=== PATIENT | male | born 1955 | race Caucasian/White ===

== ENCOUNTER 2017-03-12 11:23 | Inpatient (IN) | payer BC ==
[2017-03-12] MEDS ORDERED: METHYLPREDNISOLONE PF 125MG/VIAL IVP ONE (12:14)
[2017-03-12] MEDS ORDERED: IPRATROPIUM/ALBUTEROL (0.5MG/3MG) NEB INH ONE (12:14)
[2017-03-12 12:26] LABS: INFLUENZA A NEGATIVE (NEGATIVE); INFLUENZA B NEGATIVE (NEGATIVE); STREP A SCREEN NEGATIVE (NEGATIVE)
[2017-03-12 12:36] LABS: BASO % 0.3 % (0-6); EOS % 1.9 % (0-6); GRAN % 76.5 % (47-80); HEMATOCRIT 39.5 % (42.0-52.0); HEMOGLOBIN 13.3 gm/dl (14.0-18.0); LYMPH % 7.3 % (16-45); MEAN CELL VOLUME 85.9 fl (81-97); MEAN CORPUSCULAR HEMOGLOBIN 28.9 pg (27-33); MEAN CORPUSCULAR HGB CONC 33.7 g/dl (32-36); MEAN PLATELET VOLUME 9.2 fl (7.4-10.4); PLATELET COUNT 325 K/uL (130-400); RED CELL DISTRIBUTION WIDTH 14.3 % (11.5-14.5); WHITE BLOOD COUNT W/O DIFF 11.2 K/uL (4.2-12.2)
[2017-03-12 12:49] LABS: BLOOD UREA NITROGEN 24 mg/dL (8-23); CREATININE 1.1 mg/dL (0.7-1.2); EST GLOMERULAR FILTRATION RATE > 60 mL/min
[2017-03-12 12:51] LABS: GLUCOSE,RANDOM 121 mg/dL (74-109)
[2017-03-12] MEDS ORDERED: CEFTRIAXONE SODIUM 1 GM in 0.9 % SODIUM CHLORIDE 100ML 100 ML IVPB ONE (13:40)
[2017-03-12] MEDS ORDERED: AZITHROMYCIN 500 MG TABLET PO ONE (13:41)
--- NOTE | 2017-03-12 14:17 | Emergency Department Record ---
History of Present Illness - General Chief Complaint: Cough Stated Complaint: COUGH/DIZZY Time Seen by Provider: 03/12/17 12:00 Source: Patient Mode of Arrival: Ambulatory Limitations: No limitations - History of Present Illness Initial Comments: pt has a cough since last night.he coughs so hard he gets dizzy. he has copd, no kandis o2. his daughter has pertussis. pt had his flu shot. he has felt feverish and has body aches MD Complaint: Cough, Shortness of breath Onset/Timin -: Days(s) Consistency: Getting worse Worsens With: Lying flat Known History Of: COPD Associated Symptoms: Sputum production - Related Data Home Medications Medication Instructions Recorded Confirmed Last Taken Penicillin V Potassium 500 mg PO DAILY 03/12/17 03/12/17 03/12/17 Previous Rx's Medication Instructions Recorded Albuterol Sulfate [Proair Hfa] 1 - 2 inh IH Q4HR PRN #1 inhaler 06/19/15 Aspirin Enteric-Coated [Ecotrin 81 mg PO DAILY tabec 06/19/15 (EC)] Prednisone [Prednisone 10Mg] 10 mg PO ASDIR #30 tab 06/19/15 Promethazine HCl/Codeine 10 ml PO Q4H PRN #180 ml 06/19/15 [Phenergan W/Codeine] Spironolactone [Aldactone] 25 mg PO DAILY tablet 06/19/15 Prednisone [Prednisone 20Mg] 20 mg PO BIDPC #8 tab 07/04/15 Allergies Allergy/AdvReac Type Severity Reaction Status Date / Time No Known Drug Allergies Allergy Verified 07/04/15 20:47 Travel Screening - Travel/Exposure Within Last 30 Days Have you traveled within the last 30 days?: No - Travel/Exposure Within Last Year Have you traveled outside the [place] in the last year?: No - Additonal Travel Details Have you been exposed to anyone with a communicable illness?: No - Travel Symptoms Symptom Screening: None Review of Systems Reviewed: No additional complaints except as noted below Constitutional: Reports: As per HPI, Fever, Weakness. Denies: Chills, Malaise, Night sweats, Weight change Eyes: Reports: As per HPI. Denies: Eye discharge, Eye pain, Photophobia, Vision change ENT: Reports: As per HPI, Congestion, Throat pain. Denies: Dental pain, Ear pain, Epistaxis, Hearing loss Respiratory: Reports: As per HPI, Cough, Wheezes. Denies: Dyspnea, Hemoptysis, Stridor Cardiovascular: Reports: As per HPI. Denies: Arrhythmia, Chest pain, Dyspnea on exertion, Edema, Murmurs, Orthopnea, Palpitations, Paroxysmal nocturnal dyspnea, Rheumatic Fever, Syncope Endocrine: Reports: As per HPI, Fatigue. Denies: Heat or cold intolerance, Polydipsia, Polyuria Gastrointestinal: Reports: As per HPI. Denies: Abdominal pain, Constipation, Diarrhea, Hematemesis, Hematochezia, Melena, Nausea, Vomiting Genitourinary: Reports: As per HPI. Denies: Dysuria, Frequency, Hematuria, Incontinence, Retention, Testicular pain, Testicular mass, Urgency Musculoskeletal: Reports: As per HPI. Denies: Arthralgia, Back pain, Gout, Joint swelling, Myalgia, Neck pain Skin: Reports: As per HPI. Denies: Bruising, Change in color, Change in hair/ nails, Lesions, Pruritus, Rash Neurological: Reports: As per HPI. Denies: Abnormal gait, Confusion, Headache, Numbness, Paresthesias, Seizure, Tingling, Tremors, Vertigo, Weakness Psychiatric: Reports: As per HPI. Denies: Anxiety, Auditory hallucinations, Depression, Homicidal thoughts, Suicidal thoughts, Visual hallucinations Hematological/Lymphatic: Reports: As per HPI. Denies: Anemia, Blood Clots, Easy bleeding, Easy bruising, Swollen glands Past Medical History - SOCIAL HISTORY Smoking Status: Current every day smoker Alcohol Use: Rare Drug Use: None - RESPIRATORY Hx Respiratory Disorders: Yes Hx COPD: Yes Hx Sleep Apnea: Yes Hx of CPAP: No - CARDIOVASCULAR Hx Cardio Disorders: Yes Hx Heart Attack: Yes (2009) Hx Hypertension: Yes Comment:: high cholesterol - NEURO Hx Neuro Disorders: No - GI Hx GI Disorders: Yes Hx Pancreatitis: Yes (2003) - Hx Genitourinary Disorders: No - ENDOCRINE Hx Endocrine Disorders: No - MUSCULOSKELETAL Hx Musculoskeletal Disorders: No - PSYCH Hx Psych Problems: No - HEMATOLOGY/ONCOLOGY Hx Hematology/Oncology Disorders: No Family Medical History Any Significant Family History?: No Hx Cancer: Father *Cancer Comment: Leukemia Hx Heart Disease: Father Hx Resp Disorders: Mother *Resp Comment: COPD Physical Exam - General General Appearance: Alert, Oriented x3, Cooperative, Mild distress - Head Head exam: Normal inspection - Eye Eye exam: Normal appearance, PERRL, EOMI Pupils: Normal accommodation - ENT ENT exam: Normal exam, Mucous membranes moist, Normal external ear exam, Normal orophraynx Ear exam: Normal external inspection. negative: External canal tenderness Nasal Exam: Normal inspection. negative: Discharge, Sinus tenderness Mouth exam: Normal external inspection, Tongue normal Teeth exam: Normal inspection. negative: Dental caries Throat exam: Normal inspection. negative: Tonsillar erythema, Tonsillar exudate - Neck Neck exam: Normal inspection, Full ROM. negative: Tenderness - Respiratory Respiratory exam: Normal lung sounds bilaterally. negative: Respiratory distress - Cardiovascular Cardiovascular Exam: Normal rhythm, Normal heart sounds, Tachycardia - GI/Abdominal GI/Abdominal exam: Soft, Normal bowel sounds. negative: Tenderness - Rectal Rectal exam: Deferred - exam: Deferred - Extremities Extremities exam: Normal inspection, Full ROM, Normal capillary refill. negative: Tenderness - Back Back exam: Reports: Normal inspection, Full ROM. Denies: Muscle spasm, Rash noted, Tenderness - Neurological Neurological exam: Alert, CN II-XII intact, Normal gait, Oriented X3 - Psychiatric Psychiatric exam: Normal affect, Normal mood - Skin Skin exam: Dry, Intact, Normal color, Warm Course Vital Signs 03/12/17 03/12/17 11:40 13:00 Temperature 99.9 F H Pulse Rate 105 H 105 H Respiratory 28 H 21 Rate Blood Pressure 158/63 Pulse Ox 94 L 97 Medical Decision Making - Lab Data Result diagrams: 03/12/17 12:24 03/12/17 12:24 Lab Results 03/12/17 03/12/17 03/12/17 Range/Units 12:05 12:24 12:24 WBC 11.2 (4.2-12.2) K/uL RBC 4.60 (4.40-5.70) M/uL Hgb 13.3 L (14.0-18.0) gm/dl Hct 39.5 L (42.0-52.0) % MCV 85.9 (81-97) fl MCH 28.9 (27-33) pg MCHC 33.7 (32-36) g/dl RDW 14.3 (11.5-14.5) % Plt Count 325 (130-400) K/uL MPV 9.2 (7.4-10.4) fl Gran % 76.5 (47-80) % Lymphocytes % 7.3 L (16-45) % Monocytes % 14.0 H (0-9) % Eosinophils % 1.9 (0-6) % Basophils % 0.3 (0-6) % Sodium 137 (136-145) mmol/L Potassium 4.1 (3.4-4.5) mmol/L Chloride 99 (98-107) mmol/L Carbon Dioxide 25.0 (22-29) mmol/L Anion Gap 13.0 (7-16) BUN 24 H (8-23) mg/dL Creatinine 1.1 (0.7-1.2) mg/dL Estimated GFR > 60 mL/min Random Glucose 121 H (74-109) mg/dL Calcium 8.6 L (8.8-10.2) mg/dL Influenza Type A Ag Negative (NEGATIVE) Influenza Type B Ag Negative (NEGATIVE) Group A Strep Screen Negative (NEGATIVE) Disposition Disposition: Admit Clinical Impression: Pneumonia Qualifiers: Pneumonia type: due to unspecified organism Laterality: bilateral Lung location : lower lobe of lung Qualified Code(s): J18.9 - Pneumonia, unspecified organism Decision to Admit: Admit from ER Decision to Admit Date: 03/12/17 Decision to Admit Time: 14:24 Forms: Patient Portal Access Quality - Quality Measures Quality Measures: N/A - Blood Pressure Screening Does Patient Have Any of the Following: Active Dx of HTN Blood Pressure Classification: Hypertensive Reading Systolic Measurement: 158 Diastolic Measurement: 63 Screening for High Blood Pressure: Patient Exclusion, Hx of HTN [G9744]
[2017-03-12] MEDS ORDERED: OSTELTAMIVIR 75 MG CAP PO ONE (14:22)
[2017-03-12] MEDS ORDERED: METOPROLOL TART 25 MG TABLET PO SCH (15:22)
[2017-03-12] MEDS ORDERED: PROMETHAZINE W/CODEINE 10ML UD PO PRN (15:22)
[2017-03-12] MEDS ORDERED: IPRATROPIUM/ALBUTEROL (0.5MG/3MG) NEB INH PRN (15:22)
[2017-03-12] MEDS ORDERED: ALBUTEROL SULFATE (0.083%) 2.5 MG/3 ML NEB INH PRN (15:22)
[2017-03-12] MEDS ORDERED: NIACIN 1500 MG PO SCH (17:00)
[2017-03-12] MEDS ORDERED: ACETAMINOPHEN 500 MG TABLET PO PRN (18:23)
--- NOTE | 2017-03-12 18:54 | History & Physical ---
History of Present Illness - Date of Service Date of Service for History & Physical: 03/13/17 - History of Present Illness Admitting Diagnosis: pneumonia, bi basilar History of Present Illness: Mr. Galo is a 61 year-old male who presented to the ED on with complaint of productive cough and shortness of breath that began one night prior. He stated that he had been coughing so hard that he felt dizzy. He also complained of fever, chills, and body aches. There was also potential concern regarding pertussis exposure from his daughter- however, she tested negative for pertussis. His history includes: COPD, hypertension, CT in 2009, hyperlipidemia, pancreatitis, depression, current everyday smoker, sleep apnea ( no c-pap), and he did receive a flu vaccine this year. In the ED, his temp was 99.9F, HR 105, BP 158/63, RR 24, and 94% on 2L O2 nc. His CBC and CMP were essentially unremarkable, Hgb 13.3, Hct 39.5, WBC 11.2. Influenza A and B were negative. Rapid strep and culture were both negative. Pertussis was ordered and is pending. Chest x-ray revealed bibasilar air space opacities, worrisome for pneumonitis- likely caused by pneumonia. Azithromycin 500mg IV and Rocephin 1gm IV was administered. Tamilfu 75mg bid started based of pt's presenting signs and symptoms of influenza. Pt. was admitted to inpatient for management of pneumonia, placed in droplet precautions until pertussis result finalized. Duo nebs q6h and albuterol nebs q4h were ordered prn. 03/13/17 1000: Pt is resting in bed. He states that his cough is decreased in frequency and is no longer productive. Pt. still experiencing wheezing. T 98.2 , BP 122/68, HR 68, RR 16, 97% on 2L O2 nc. (pt. does not use home O2). WBC increased this morning to 16.6 with left shift. Per RT request (because pt in droplet isolation pending pertussis results), duo neb changed to MDI- continue combivent q4h prn. Solumedrol 125mg IVP daily changed to prednisone 40mg daily , will plan to continue for 4 days total. Plan to continue IV rocephin 1gm q12h and azithromycin 500mg po qd. Travel Screening - Travel/Exposure Within Last 30 Days Have you traveled within the last 30 days?: No - Travel/Exposure Within Last Year Have you traveled outside the [place] in the last year?: No - Additonal Travel Details Have you been exposed to anyone with a communicable illness?: Yes Exposure Details:: pertussis - Travel Symptoms Symptom Screening: Fever (Subjective), Fever (GT 100.4) - Additional Travel Comment Additional Travel/Exposure Comment: Daughter back from [place] last week, had Pertussis when she returned Review of Systems Constitutional: Reports: As per HPI, Fever, Weakness. Denies: Chills, Malaise, Night sweats, Weight change Eyes: Reports: As per HPI. Denies: Eye discharge, Eye pain, Photophobia, Vision change ENT: Reports: As per HPI, Congestion, Throat pain. Denies: Dental pain, Ear pain, Epistaxis, Hearing loss Respiratory: Reports: As per HPI, Cough, Wheezes. Denies: Dyspnea, Hemoptysis, Stridor Cardiovascular: Reports: As per HPI. Denies: Arrhythmia, Chest pain, Dyspnea on exertion, Edema, Murmurs, Orthopnea, Palpitations, Paroxysmal nocturnal dyspnea, Rheumatic Fever, Syncope Endocrine: Reports: As per HPI, Fatigue. Denies: Heat or cold intolerance, Polydipsia, Polyuria Gastrointestinal: Reports: As per HPI. Denies: Abdominal pain, Constipation, Diarrhea, Hematemesis, Hematochezia, Melena, Nausea, Vomiting Genitourinary: Reports: As per HPI. Denies: Dysuria, Frequency, Hematuria, Incontinence, Retention, Testicular pain, Testicular mass, Urgency Musculoskeletal: Reports: As per HPI. Denies: Arthralgia, Back pain, Gout, Joint swelling, Myalgia, Neck pain Skin: Reports: As per HPI. Denies: Bruising, Change in color, Change in hair/ nails, Lesions, Pruritus, Rash Neurological: Reports: As per HPI. Denies: Abnormal gait, Confusion, Headache, Numbness, Paresthesias, Seizure, Tingling, Tremors, Vertigo, Weakness Psychiatric: Reports: As per HPI, Depression. Denies: Anxiety, Auditory hallucinations, Homicidal thoughts, Suicidal thoughts, Visual hallucinations Hematological/Lymphatic: Reports: As per HPI. Denies: Anemia, Blood Clots, Easy bleeding, Easy bruising, Swollen glands Past Medical History - SOCIAL HISTORY Smoking Status: Current every day smoker Alcohol Use: None Drug Use: None - RESPIRATORY Hx Respiratory Disorders: Yes Hx COPD: Yes Hx Sleep Apnea: Yes Hx of CPAP: No - CARDIOVASCULAR Hx Cardio Disorders: Yes Hx Heart Attack: Yes (2009) Hx Hypertension: Yes Comment:: high cholesterol - NEURO Hx Neuro Disorders: No - GI Hx GI Disorders: Yes Hx Pancreatitis: Yes (2003) - Hx Genitourinary Disorders: No - ENDOCRINE Hx Endocrine Disorders: No Hx Diabetes: No Hx Thyroid Disease: No - MUSCULOSKELETAL Hx Musculoskeletal Disorders: No - PSYCH Hx Psych Problems: No - HEMATOLOGY/ONCOLOGY Hx Hematology/Oncology Disorders: No Family Medical History Any Significant Family History?: Yes Hx Cancer: Father *Cancer Comment: Leukemia Hx Heart Disease: Father Hx Resp Disorders: Mother *Resp Comment: COPD H&P Meds/Allergies - Allergies Allergies: Allergies Allergy/AdvReac Type Severity Reaction Status Date / Time No Known Drug Allergies Allergy Verified 07/04/15 20:47 - Home Medications Home Medications Medication Instructions Recorded Confirmed Last Taken Penicillin V Potassium 500 mg PO DAILY 03/12/17 03/12/17 03/12/17 Amlodipine Besylate/Benazepril 1 each PO DAILY 03/13/17 03/13/17 Unknown [Lotrel 5-40 mg Capsule] Pioglitazone HCl [Pioglitazone HCl] 30 mg PO DAILY 03/13/17 03/13/17 Unknown Previous Rx's Medication Instructions Recorded Albuterol Sulfate [Proair Hfa] 1 - 2 inh IH Q4HR PRN #1 inhaler 06/19/15 Aspirin Enteric-Coated [Ecotrin 81 mg PO DAILY tabec 06/19/15 (EC)] Prednisone [Prednisone 10Mg] 10 mg PO ASDIR #30 tab 06/19/15 Promethazine HCl/Codeine 10 ml PO Q4H PRN #180 ml 06/19/15 [Phenergan W/Codeine] Spironolactone [Aldactone] 25 mg PO DAILY tablet 06/19/15 Prednisone [Prednisone 20Mg] 20 mg PO BIDPC #8 tab 07/04/15 - Active Medications Active Medications: Current Medications Acetaminophen (Tylenol 500mg Tab) 1,000 mg PO Q6H PRN PRN Reason: Fever >101 Albuterol Sulfate () 2.5 mg INH RESP.Q4H PRN PRN Reason: DIFFICULTY IN BREATHING Albuterol/Ipratropium (Duoneb) 3 ml INH RESP.Q6H PRN PRN Reason: Wheezing Aspirin (Ecotrin (Ec)) 81 mg PO DAILY [facility] Atorvastatin Calcium (Lipitor) 80 mg PO DAILY [facility] Azithromycin (Zithromax) 500 mg PO DAILY [facility] Bupropion HCl (Wellbutrin Sr) 150 mg PO BID [facility] Clopidogrel Bisulfate (Plavix) 75 mg PO DAILY [facility] Hydrochlorothiazide (Hctz 25mg) 25 mg PO DAILY [facility] Ceftriaxone Sodium 1 gm/ (Sodium Chloride) 100 mls @ 100 mls/hr IVPB Q24H [facility] Stop: 03/18/17 14:01 Methylprednisolone Sodium Succinate (Solu-Medrol) 125 mg IVP DAILY [facility] Metoprolol Tartrate (Lopressor) 25 mg PO BID [facility] Non-Formulary Medication (Fenofibrate [Lofibra]) 160 mg PO DAILY [facility] Non-Formulary Medication (Niacin [Niaspan]) 1,500 mg PO QPM [facility] Oseltamivir Phosphate (Tamiflu) 75 mg PO BID [facility] Stop: 03/16/17 22:01 Promethazine HCl/Codeine (Phenergan W/Codeine) 10 ml PO Q4H PRN PRN Reason: COUGH Spironolactone (Aldactone) 25 mg PO DAILY [facility] Physical Exam - Vital Signs Vital Signs: Vital Signs - Last 24 Hrs Temp Pulse Pulse Resp BP Pulse Ox 03/12/17 18:00 100.6 F H 96 H 17 106/58 99 03/12/17 17:36 101 H 21 93 L 03/12/17 15:15 99.5 F 97 H 17 118/62 92 L - General General Appearance: Alert, Oriented x3, Cooperative, Mild distress Limitations: No limitations - Head Head exam: Normal inspection - Eye Eye exam: Normal appearance, PERRL, EOMI Pupils: Normal accommodation - ENT ENT exam: Normal exam, Mucous membranes moist, Normal external ear exam, Normal orophraynx Ear exam: Normal external inspection. negative: External canal tenderness Nasal Exam: Normal inspection. negative: Discharge, Sinus tenderness Mouth exam: Normal external inspection, Tongue normal Teeth exam: Normal inspection. negative: Dental caries Throat exam: Normal inspection. negative: Tonsillar erythema, Tonsillar exudate - Neck Neck exam: Normal inspection, Full ROM. negative: Tenderness - Respiratory Respiratory exam: Decreased breath sounds (more decreased in RML and RLL), Wheezes (inspiratory and expiratory). negative: Accessory muscle use, Respiratory distress - Cardiovascular Cardiovascular Exam: Normal rhythm, Normal heart sounds, Tachycardia - GI/Abdominal GI/Abdominal exam: Soft, Normal bowel sounds. negative: Tenderness - Rectal Rectal exam: Deferred - exam: Deferred - Extremities Extremities exam: Normal inspection, Full ROM, Normal capillary refill. negative: Tenderness - Back Back exam: Reports: Normal inspection, Full ROM. Denies: Muscle spasm, Rash noted, Tenderness - Neurological Neurological exam: Alert, CN II-XII intact, Normal gait, Oriented X3 - Psychiatric Psychiatric exam: Normal affect, Normal mood - Skin Skin exam: Dry, Intact, Normal color, Warm Results - Labs Result Diagrams: 03/13/17 06:12 03/13/17 06:12 - Imaging and Cardiology Chest x-ray Status: Report reviewed (bibasilar air space opacities, worrisome for pneumonitis) VTE H&P Assessment - Risk for VTE Risk for VTE: Yes Risk Level: Low Risk Assessment Date: 03/13/17 Risk Assessment Time: 10:49 VTE Orders Placed or Will Be Placed: No VTE Reason for No Prophylaxis: Not Indicated (pt. on plavix) Plan - Inpatient Certification Inpatient Certification: Admit to inpatient care: Based on my medical assessment, after consideration of patient's risk factors (age, co-morbidities and patient presenting symptoms and acuity), I expect that this patient will remain in the hospital greater than or equal to two midnights and that the services needed warrant inpatient care because: Patient Risk Factors: [Age, co-morbidities- COPD, recent possible pertussis exposure] Estimated length of stay: [48-72 hours] The patient may reasonably be expected to be discharged or transferred to a hospital within 96 hours after admission to [facility]. Services needed: [IV antibiotics, respiratory treatments] Post hospital care (if known): [] I certify that my determination is in accordance with my understanding of Medicare requirements for reasonable and necessary inpatient services. 03/12/17 18:51 03/13/17 10:53 - Detailed Diagnosis and Plan (1) Pneumonia Current Visit: Yes Status: Acute Qualifiers: Pneumonia type: due to unspecified organism Laterality: bilateral Lung location: lower lobe of lung Qualified Code(s): J18.9 - Pneumonia, unspecified organism Base Code: J18.9 - PNEUMONIA, UNSPECIFIED ORGANISM Comment: 03/13/17 1050: Pt. presented to ED on 03/12/17 for productive cough and shortness of breath. Chest xray showed bibasilar air space opacities, probable pneumonitis. WBC increased today to 16.6 from 11.2 upon admission. Pt. has remained afebrile since admission. Plan to continue azithromycin 500mg PO daily and changed rocephin 1 gm IV from qd to q12h. Will continue combivent q4h prn wheezing. (2) COPD exacerbation Current Visit: No Status: Acute Base Code: J44.1 - CHRONIC OBSTRUCTIVE PULMONARY DISEASE W (ACUTE) EXACERBATION Comment: 03/13/17 1050: Pt. presented to ED on 03/12 with worsening SOB and productive cough, hx of COPD. C- xray pos for bibasilar pneumonitis. Plan to continue steroids- changed solumedrol 125mg IVP to prednisone 40mg daily. Changed duo neb to combivent q4h prn wheezing (per RT because pt. is in droplet precautions- pending pertussis). Will continue azithromycin 500mg PO daily and rocephin 1g q12h for pneumonitis, likely pneumonia. (3) At risk for deep venous thrombosis Current Visit: Yes Status: Acute Base Code: Z91.89 - OTH PERSONAL RISK FACTORS, NOT ELSEWHERE CLASSIFIED Comment: 03/13/17 1050: Pt. history of CT, hyperlipidemia, decreased ambulation secondary to shortness of breath associated with pneumonia. Pt. takes plavix 75mg daily prophylactically. (4) Full code status Current Visit: Yes Status: Acute Base Code: Z78.9 - OTHER SPECIFIED HEALTH STATUS Comment: 03/13/17 1050: Pt. is full code status
[2017-03-12] MEDS: METOPROLOL TART 25 MG TABLET PO SCH (21:23)
[2017-03-12] MEDS: OSTELTAMIVIR 75 MG CAP PO SCH (21:23)
[2017-03-12] MEDS: BUPROPION HCL 150 MG TAB.SR.12H PO SCH (21:24)
[2017-03-13 06:25] LABS: HEMATOCRIT 38.9 % (42.0-52.0); HEMOGLOBIN 12.9 gm/dl (14.0-18.0); MEAN CELL VOLUME 86.6 fl (81-97); MEAN CORPUSCULAR HEMOGLOBIN 28.7 pg (27-33); MEAN CORPUSCULAR HGB CONC 33.2 g/dl (32-36); MEAN PLATELET VOLUME 9.5 fl (7.4-10.4); PLATELET COUNT 336 K/uL (130-400); RED BLOOD COUNT 4.49 M/uL (4.40-5.70); RED CELL DISTRIBUTION WIDTH 14.5 % (11.5-14.5); WHITE BLOOD COUNT W/O DIFF 16.6 K/uL (4.2-12.2)
[2017-03-13 06:38] LABS: ALB/GLOB RATIO 1.3 (1.1-1.8); ALBUMIN 3.9 g/dL (4.0-5.0); ALKALINE PHOSPHATASE 45 U/L (40-129); ALT/SGPT 19 U/L (<41); AST/SGOT 20 U/L (10.0-50.0); BLOOD UREA NITROGEN 34 mg/dL (8-23); CREATININE 1.2 mg/dL (0.7-1.2); EST GLOMERULAR FILTRATION RATE > 60 mL/min; GLUCOSE,RANDOM 157 mg/dL (74-109); TOTAL PROTEIN 6.9 g/dL (6.6-8.7)
--- NOTE | 2017-03-13 07:13 | RADIOLOGY REPORT ---
EXAM: CHEST, TWO VIEWS HISTORY: COUGH. TECHNIQUE: Frontal and lateral views of the chest were obtained. Comparison: 07/04/15 chest. FINDINGS: The heart size is normal. Patchy bibasilar air space opacities worrisome for pneumonitis. Osteopenia. No pneumothorax. Atheromatous change of the thoracic aorta. IMPRESSION: PATCHY BIBASILAR AIR SPACE OPACITIES, WORRISOME FOR PNEUMONITIS. JOB NUMBER: [id number] MTDD
[2017-03-13] MEDS ORDERED: METHYLPREDNISOLONE PF 125MG/VIAL IVP SCH (10:00)
[2017-03-13] MEDS ORDERED: FENOFIBRATE 160 MG PO SCH (10:00)
[2017-03-13] MEDS: ATORVASTATIN 20 MG TABLET PO SCH (10:09)
[2017-03-13] MEDS: BENAZEPRIL 20 MG TABLET PO SCH (10:09)
[2017-03-13] MEDS: HYDROCHLOROTHIAZIDE 25 MG TABLET PO SCH (10:11)
[2017-03-13] MEDS: PIOGLITAZONE HCL 15 MG TABLET PO SCH (10:11)
[2017-03-13] MEDS: METOPROLOL TART 25 MG TABLET PO SCH ×2 (10:11→21:40)
[2017-03-13] MEDS: AZITHROMYCIN 500 MG TABLET PO SCH (10:11)
[2017-03-13] MEDS: AMLODIPINE BESYLATE 5MG TAB PO SCH (10:11)
[2017-03-13] MEDS: OSTELTAMIVIR 75 MG CAP PO SCH ×2 (10:11→21:41)
[2017-03-13] MEDS: BUPROPION HCL 150 MG TAB.SR.12H PO SCH ×2 (10:11→21:40)
[2017-03-13] MEDS: CLOPIDOGREL 75MG TABLET PO SCH (10:11)
[2017-03-13] MEDS: SPIRONOLACTONE 25 MG TAB PO SCH (10:11)
[2017-03-13] MEDS: ASPIRIN 81 MG TABEC PO SCH (10:11)
[2017-03-13] MEDS: PREDNISONE 20 MG TAB PO SCH (10:12)
[2017-03-13] MEDS ORDERED: IPRATROPIUM/ALBUTEROL 4 GM INH INH PRN (10:19)
[2017-03-13] MEDS: CEFTRIAXONE SODIUM 1 GM in 0.9 % SODIUM CHLORIDE 100ML 100 ML IVPB SCH ×2 (10:34→21:41)
[2017-03-13] MEDS ORDERED: CEFTRIAXONE SODIUM 1 GM in 0.9 % SODIUM CHLORIDE 100ML 100 ML IVPB SCH (14:00)
[2017-03-13] MEDS: IPRATROPIUM/ALBUTEROL 4 GM INH INH SCH ×2 (17:00→22:09)
[2017-03-13] MEDS ORDERED: IBUPROFEN 600 MG TABLET PO PRN (18:05)
[2017-03-13] MEDS ORDERED: IBUPROFEN 400 MG TABLET PO PRN (18:13)
[2017-03-14] MEDS: IPRATROPIUM/ALBUTEROL 4 GM INH INH SCH ×2 (06:19→10:48)
[2017-03-14 06:36] LABS: BASO % 0.2 % (0-6); EOS % 0.4 % (0-6); GRAN % 69.6 % (47-80); HEMATOCRIT 39.1 % (42.0-52.0); LYMPH % 19.8 % (16-45); MEAN CELL VOLUME 87.1 fl (81-97); MEAN CORPUSCULAR HGB CONC 33.2 g/dl (32-36); MEAN PLATELET VOLUME 9.6 fl (7.4-10.4); PLATELET COUNT 325 K/uL (130-400); RED BLOOD COUNT 4.49 M/uL (4.40-5.70); RED CELL DISTRIBUTION WIDTH 14.9 % (11.5-14.5); WHITE BLOOD COUNT W/O DIFF 12.6 K/uL (4.2-12.2)
[2017-03-14 06:37] LABS: MEAN CORPUSCULAR HEMOGLOBIN 28.9 pg (27-33)
[2017-03-14 07:05] LABS: ALB/GLOB RATIO 1.4 (1.1-1.8); ALBUMIN 3.9 g/dL (4.0-5.0); ALKALINE PHOSPHATASE 41 U/L (40-129); ALT/SGPT 21 U/L (<41); AST/SGOT 23 U/L (10.0-50.0); BLOOD UREA NITROGEN 30 mg/dL (8-23); CREATININE 1.1 mg/dL (0.7-1.2); EST GLOMERULAR FILTRATION RATE > 60 mL/min; GLUCOSE,RANDOM 98 mg/dL (74-109); TOTAL PROTEIN 6.6 g/dL (6.6-8.7)
--- NOTE | 2017-03-14 07:39 | Discharge Summary ---
Providers Discharge Summary Date: 03/14/17 Date of admission: 03/12/17 14:52 Expected Date of Discharge: 03/14/17 Attending physician: SILVINA ZELAYA Primary care physician: SERENE NEWMAN M.D. Physical Exam - Vital Signs Vital Signs: Vital Signs - Last 24 Hrs Temp Pulse Pulse Resp BP Pulse Ox 03/14/17 06:19 60 18 93 L 03/14/17 06:00 98.6 F 70 18 122/64 98 03/13/17 22:09 55 L 18 95 03/13/17 21:37 97 F L 63 18 118/63 97 03/13/17 21:00 63 18 03/13/17 18:00 97.0 F L 71 17 117/64 95 03/13/17 17:00 73 19 95 03/13/17 13:55 81 16 117/66 99 03/13/17 10:49 71 17 97 03/13/17 09:00 68 17 03/13/17 07:51 98.2 F 68 16 122/68 97 - General General Appearance: Alert, Oriented x3, Cooperative, No acute distress Limitations: No limitations - Head Head exam: Normal inspection - Eye Eye exam: Normal appearance, PERRL, EOMI Pupils: Normal accommodation - ENT ENT exam: Normal exam, Mucous membranes moist, Normal external ear exam, Normal orophraynx Ear exam: Normal external inspection. negative: External canal tenderness Nasal Exam: Normal inspection. negative: Discharge, Sinus tenderness Mouth exam: Normal external inspection, Tongue normal Teeth exam: Normal inspection. negative: Dental caries Throat exam: Normal inspection. negative: Tonsillar erythema, Tonsillar exudate - Neck Neck exam: Normal inspection, Full ROM. negative: Tenderness - Respiratory Respiratory exam: Wheezes (inspiratory and expiratory). negative: Accessory muscle use, Respiratory distress - Cardiovascular Cardiovascular Exam: Regular rate, Normal rhythm, Normal heart sounds - GI/Abdominal GI/Abdominal exam: Soft, Normal bowel sounds. negative: Tenderness - Rectal Rectal exam: Deferred - exam: Deferred - Extremities Extremities exam: Normal inspection, Full ROM, Normal capillary refill. negative: Tenderness - Back Back exam: Reports: Normal inspection, Full ROM. Denies: Muscle spasm, Rash noted, Tenderness - Neurological Neurological exam: Alert, CN II-XII intact, Normal gait, Oriented X3 - Psychiatric Psychiatric exam: Normal affect, Normal mood - Skin Skin exam: Dry, Intact, Normal color, Warm Hospitalization - Hospitalization Admission Diagnosis: pneumonia, bi basilar - Problem List/Discharge Diagnosis (1) COPD exacerbation Current Visit: No Status: Acute Base Code: J44.1 - CHRONIC OBSTRUCTIVE PULMONARY DISEASE W (ACUTE) EXACERBATION Comment: 03/14/17: Continues to improve. likely 2/2 pneumonitis. Rapid influenza was negative and pertusses pending. CXR bibasilar patchy airspace opacities. Patient reports decreased shortness of breath and cough. He is feeling much improved. Did not qualify for home oxgyen on testing. remains afebrile. WBC trending down. elevation likely 2/ 2 steroid use. -plan to discharge home today. Has follow up wtih Dr. Newman on 03/23 -continue cefdinir 300mg po bid for 7 more days and azithromycin 250mg po daily for 2 more days -continue prednisone 40mg po daily for 2 more days -continue albuterol inhaler q4H prn shortness of breath -will write script for promethazine/codeine. we discussed [employer] depressant effect of codeine and to have him use this sparinly and to avoid any other depressants while taking this medication including etoh. -spent 5 mintues discussing reasons to return to ED including worsening SOB, increased work of breathing. (2) Pertussis exposure Current Visit: Yes Status: Acute Base Code: Z20.818 - CONTACT W AND EXPOSURE TO OTH BACT COMMUNICABLE DISEASES Comment: 03/14/17- patient originally thought he had been exposed to pertussis. His daughter actually tested negative. His test is still pending. Additionally, due to rapid onset of symptoms I would think pertussis is less likely as cause of symptoms. He will continue azithromycin as part of his pneumonia treatment. (3) Full code status Current Visit: Yes Status: Acute Base Code: Z78.9 - OTHER SPECIFIED HEALTH STATUS Comment: 03/14/17: Pt. is full code status (4) At risk for deep venous thrombosis Current Visit: Yes Status: Acute Base Code: Z91.89 - OTH PERSONAL RISK FACTORS, NOT ELSEWHERE CLASSIFIED Comment: 03/14/17 1050: Pt. history of PR, hyperlipidemia, decreased ambulation secondary to shortness of breath associated with pneumonia -continue plavix 75mg daily and encourage ambulation as tolerating - Hospitalization Course Disposition: Home, Self-Care Hospital Course: Mr. Galo is a 61 year-old male who presented to the ED on with complaint of productive cough and shortness of breath that began one night prior. He stated that he had been coughing so hard that he felt dizzy. He also complained of fever, chills, and body aches. There was also potential concern regarding pertussis exposure from his daughter- however, she tested negative for pertussis. His history includes: COPD, hypertension, PR in 2010, hyperlipidemia, pancreatitis, depression, current everyday smoker, sleep apnea ( no c-pap), and he did receive a flu vaccine this year. In the ED, his temp was 99.9F, HR 105, BP 158/63, RR 24, and 94% on 2L O2 nc. His CBC and CMP were essentially unremarkable, Hgb 13.3, Hct 39.5, WBC 11.2. Influenza A and B were negative. Rapid strep and culture were both negative. Pertussis was ordered and is pending. Chest x-ray revealed bibasilar air space opacities, worrisome for pneumonitis- likely caused by pneumonia. Azithromycin 500mg IV and Rocephin 1gm IV was administered. Tamilfu 75mg bid started based of pt's presenting signs and symptoms of influenza. Pt. was admitted to inpatient for management of pneumonia, placed in droplet precautions until pertussis result finalized. Duo nebs q6h and albuterol nebs q4h were ordered prn. 03/13/17 1000: Pt is resting in bed. He states that his cough is decreased in frequency and is no longer productive. Pt. still experiencing wheezing. T 98.2 , BP 122/68, HR 68, RR 16, 97% on 2L O2 nc. (pt. does not use home O2). WBC increased this morning to 16.6 with left shift. Per RT request (because pt in droplet isolation pending pertussis results), duo neb changed to MDI- continue combivent q4h prn. Solumedrol 125mg IVP daily changed to prednisone 40mg daily , will plan to continue for 4 days total. Plan to continue IV rocephin 1gm q12h and azithromycin 500mg po qd. 03/14/17- Patient is doing well today. He says he is feeling much better overall. He is still having some cough but feels like the congestion is loosening up now and he is able to get some stuff up. He denies feeling short of breath. He did very well on the home oxygen qualifier and did not qualify for home oxygen. He is ready to go home and has an appointment with Dr. Newman scheduled. Abnormal Labs: Abnormal Lab Results 03/13/17 03/13/17 03/14/17 Range/Units 06:12 06:12 06:15 WBC 16.6 H 12.6 H (4.2-12.2) K/uL Hgb 12.9 L 13.0 L (14.0-18.0) gm/dl Hct 38.9 L 39.1 L (42.0-52.0) % RDW 14.9 H (11.5-14.5) % Neutrophils % 85.0 H (47-80) % Monocytes % 10.0 H (0-9) % Lymphocytes 10.0 L (16-45) % Potassium 4.8 H (3.4-4.5) mmol/L BUN 34 H (8-23) mg/dL Random Glucose 157 H (74-109) mg/dL Albumin 3.9 L (4.0-5.0) g/dL 03/14/17 Range/Units 06:15 WBC (4.2-12.2) K/uL Hgb (14.0-18.0) gm/dl Hct (42.0-52.0) % RDW (11.5-14.5) % Neutrophils % (47-80) % Monocytes % (0-9) % Lymphocytes (16-45) % Potassium (3.4-4.5) mmol/L BUN 30 H (8-23) mg/dL Random Glucose (74-109) mg/dL Albumin 3.9 L (4.0-5.0) g/dL Condition at Discharge: (2) Stable Discharge Medications - Discharge Medications Prescriptions: Azithromycin 250 mg PO DAILY #2 tablet Cefdinir 300 mg PO BID #15 capsule Oseltamivir Phosphate [Tamiflu] 75 mg PO BID #5 capsule Prednisone [Prednisone 20Mg] 40 mg PO DAILY #4 tab Promethazine HCl/Codeine [Phenergan W/Codeine] 10 ml PO Q4H PRN #180 ml PRN Reason: Cough Home Medications: Ambulatory Orders Atorvastatin Calcium [Lipitor] 80 mg PO DAILY 06/18/15 [Last Taken 03/12/17] Bupropion HCl [Wellbutrin Sr] 150 mg PO BID 06/18/15 [Last Taken 03/12/17] Clopidogrel Bisulfate [Plavix] 75 mg PO DAILY 06/18/15 [Last Taken 03/12/17] Fenofibrate [Lofibra] 160 mg PO DAILY 06/18/15 [Last Taken 03/12/17] Fluticasone/Vilanterol [Breo Ellipta 100-25 Mcg INH] 1 inh IH DAILY 06/18/15 [ Last Taken 03/12/17] Hydrochlorothiazide [Hctz] 25 mg PO DAILY 06/18/15 [Last Taken 03/12/17] Metoprolol Tartrate [Lopressor] 25 mg PO Q12H 06/18/15 [Last Taken 03/12/17] Niacin [Niaspan] 1,500 mg PO QPM 06/18/15 [Last Taken 03/12/17] Umeclidinium [place] [Incruse Ellipta] 1 inh IH DAILY 06/18/15 [Last Taken 03/12] Albuterol Sulfate [Proair Hfa] 1 - 2 inh IH Q4HR PRN #1 inhaler 06/19/15 [Last Taken 03/12/17] Aspirin Enteric-Coated [Ecotrin (EC)] 81 mg PO DAILY tabec 06/19/15 [Last Taken 03/12/17] Spironolactone [Aldactone] 25 mg PO DAILY tablet 06/19/15 [Last Taken 03/12/17] Amlodipine Besylate/Benazepril [Lotrel 5-40 mg Capsule] 1 each PO DAILY [Last Taken Unknown] Pioglitazone HCl 30 mg PO DAILY 03/13/17 [Last Taken Unknown] Azithromycin 250 mg PO DAILY #2 tablet 03/14/17 [Last Taken Unknown] Cefdinir 300 mg PO BID #15 capsule 03/14/17 [Last Taken Unknown] Oseltamivir Phosphate [Tamiflu] 75 mg PO BID #5 capsule 03/14/17 [Last Taken Unknown] Prednisone [Prednisone 20Mg] 40 mg PO DAILY #4 tab 03/14/17 [Last Taken Unknown] Promethazine HCl/Codeine [Phenergan W/Codeine] 10 ml PO Q4H PRN #180 ml [Last Taken Unknown] Discharge Plan - Discharge Instructions Activity at Discharge: Resume Usual Activities As Tolerated Diet at Discharge: Low Fat, Low Cholesterol, Low Salt Diet Additional Instructions: Follow up with Dr. Newman on 03/23/17 at 7:00am. Continue azithromycin 250mg by mouth for 2 more days. Your next dose will be tomorrow Continue cefdinir 300mg by mouth twice daily for 7 more days. Your next dose will be taken tonight. Continue prednisone 40mg by mouth once daily for 2 more days. Your next dose will be tomorrow Continue tamiflu 75mg by mouth twice daily for 2 more days. Your next dose will be due tonight. May use promethazine/codeine cough syrup as needed for persistent cough May use albuterol rescue inhaler every 4 hours as needed for shortness of breath Please call with any questions or concerns Return to ED for any new or worsening symptoms Quality Measures - Quality Measures Quality Measures: Documentation of Current Medications in Medical Record, Screening for High Blood Pressure and F/U Documented - Current Medications Quality Measure: Measure #130: Documentation of Current Medications Documentation of Current Medications: <Current Medications Documented/Reviewed> [G8427] - Blood Pressure Screening Quality Measure: Screening for High Blood Pressure and Follow-Up Documented Does Patient Have Any of the Following: Active Dx of HTN Blood Pressure Classification: Hypertensive Reading Systolic Measurement: 158 Diastolic Measurement: 63 Screening for High Blood Pressure: Patient Exclusion, Hx of HTN [G9744] - Elder Abuse Suspicion Index EASI Reference Information: Mitali PRYOR, Robert C, Francisca D, Sadie Almanza.Development and validation of a tool to assist physicians identification of elder abuse: The Elder Abuse Suspicion Index (EASI ). Journal of Elder Abuse and Neglect, 2008; 20 (3): 276-300.
[2017-03-14] MEDS: CEFTRIAXONE SODIUM 1 GM in 0.9 % SODIUM CHLORIDE 100ML 100 ML IVPB SCH (09:18)
[2017-03-14] MEDS: PREDNISONE 20 MG TAB PO SCH (09:20)
[2017-03-14] MEDS: ATORVASTATIN 20 MG TABLET PO SCH (09:22)
[2017-03-14] MEDS: AZITHROMYCIN 500 MG TABLET PO SCH (09:22)
[2017-03-14] MEDS: AMLODIPINE BESYLATE 5MG TAB PO SCH (09:22)
[2017-03-14] MEDS: CLOPIDOGREL 75MG TABLET PO SCH (09:22)
[2017-03-14] MEDS: BUPROPION HCL 150 MG TAB.SR.12H PO SCH (09:22)
[2017-03-14] MEDS: ASPIRIN 81 MG TABEC PO SCH (09:24)
[2017-03-14] MEDS: BENAZEPRIL 20 MG TABLET PO SCH (09:24)
[2017-03-14] MEDS: PIOGLITAZONE HCL 15 MG TABLET PO SCH (09:29)
[2017-03-14] MEDS: METOPROLOL TART 25 MG TABLET PO SCH (09:30)
[2017-03-14] MEDS: OSTELTAMIVIR 75 MG CAP PO SCH (09:30)
[2017-03-14] MEDS: HYDROCHLOROTHIAZIDE 25 MG TABLET PO SCH (09:30)
[2017-03-14] MEDS: SPIRONOLACTONE 25 MG TAB PO SCH (09:31)
== END 2017-03-14 11:45 | disposition home or self-care (01) | DRG 190 ==
LOC: ER 11:23 → MEDSURG 14:52
PROVIDERS: ADMIT Internal Medicine; ATTEND Internal Medicine
DX: J44.1 Chronic obstructive pulmonary disease with (acute) exacerbation (principal); J18.9 Pneumonia, unspecified organism; J44.0 Chronic obstructive pulmonary disease with (acute) lower respiratory infection; I25.2 Old myocardial infarction; I10 Essential (primary) hypertension; E78.5 Hyperlipidemia, unspecified; F17.210 Nicotine dependence, cigarettes, uncomplicated
CPT/HCPCS: 71046; 80048; 80053; 85025; 85027; 87400; 87880; 94620; 94640; 94760; 94761; 96374; 96375; 99223; 99239; 99285; J2930; J3490; J7512

== ENCOUNTER 2017-06-13 23:07 | Observation (INO) | payer BC ==
[2017-06-13] MEDS ORDERED: IPRATROPIUM/ALBUTEROL (0.5MG/3MG) NEB INH ONE (23:09)
[2017-06-13] MEDS ORDERED: ALBUTEROL SULFATE (0.083%) 2.5 MG/3 ML NEB INH ONE (23:27)
[2017-06-13] MEDS ORDERED: METHYLPREDNISOLONE PF 125MG/VIAL IVP ONE (23:27)
[2017-06-13 23:39] LABS: BASO % 0.6 % (0-6); GRAN % 52.3 % (47-80); HEMATOCRIT 39.4 % (42.0-52.0); HEMOGLOBIN 12.9 gm/dl (14.0-18.0); LYMPH % 33.8 % (16-45); MEAN CELL VOLUME 86.8 fl (81-97); MEAN CORPUSCULAR HEMOGLOBIN 28.4 pg (27-33); MEAN CORPUSCULAR HGB CONC 32.7 g/dl (32-36); MEAN PLATELET VOLUME 9.2 fl (7.4-10.4); MONO % 11.3 % (0-9); PLATELET COUNT 317 K/uL (130-400); RED BLOOD COUNT 4.54 M/uL (4.40-5.70); RED CELL DISTRIBUTION WIDTH 14.8 % (11.5-14.5); WHITE BLOOD COUNT W/O DIFF 10.1 K/uL (4.2-12.2)
--- NOTE | 2017-06-13 23:48 | Emergency Department Record ---
History of Present Illness - General Chief Complaint: Shortness of breath Stated Complaint: TENISHA Time Seen by Provider: 06/13/17 23:17 Source: Patient Mode of Arrival: Ambulatory Limitations: No limitations - History of Present Illness Initial Comments: The patient is here due to a cough and SOB for the last few hours. He has been having mild SOB for a couple of days but it got a lot worse tonight after being exposed to dust in his garage. He denies any CP, fever, back pain, or sweating and does have a hx of COPD with exacerbations similar to this. MD Complaint: Cough, Shortness of breath Onset/Timin -: Hour(s) Known History Of: COPD Treatments Prior to Arrival: Bronchodilator - Related Data Home Oxygen Therapy: No Previous Rx's Medication Instructions Recorded Albuterol Sulfate [Proair Hfa] 1 - 2 inh IH Q4HR PRN #1 inhaler 06/19/15 Aspirin Enteric-Coated [Ecotrin 81 mg PO DAILY tabec 06/19/15 (EC)] Spironolactone [Aldactone] 25 mg PO DAILY tablet 06/19/15 Promethazine HCl/Codeine 10 ml PO Q4H PRN #180 ml 03/14/17 [Phenergan W/Codeine] Allergies Allergy/AdvReac Type Severity Reaction Status Date / Time No Known Drug Allergies Allergy Verified 07/04/15 20:47 Travel Screening - Travel/Exposure Within Last 30 Days Have you traveled within the last 30 days?: No Review of Systems Constitutional: Denies: Chills, Fever, Malaise Eyes: Denies: Eye discharge ENT: Denies: Congestion Respiratory: Reports: Cough, Dyspnea. Denies: Hemoptysis, Wheezes Cardiovascular: Denies: Arrhythmia, Chest pain Endocrine: Denies: Fatigue Gastrointestinal: Denies: Abdominal pain Genitourinary: Denies: Dysuria Musculoskeletal: Denies: Back pain Past Medical History - SOCIAL HISTORY Smoking Status: Current every day smoker Alcohol Use: None Drug Use: None - RESPIRATORY Hx Respiratory Disorders: Yes Hx COPD: Yes Hx Sleep Apnea: Yes Hx of CPAP: No - CARDIOVASCULAR Hx Cardio Disorders: Yes Hx Heart Attack: Yes (2009) Hx Hypertension: Yes Comment:: high cholesterol - NEURO Hx Neuro Disorders: No - GI Hx GI Disorders: Yes Hx Pancreatitis: Yes (2003) - Hx Genitourinary Disorders: No - ENDOCRINE Hx Endocrine Disorders: No Hx Diabetes: No Hx Thyroid Disease: No - MUSCULOSKELETAL Hx Musculoskeletal Disorders: No - PSYCH Hx Psych Problems: No - HEMATOLOGY/ONCOLOGY Hx Hematology/Oncology Disorders: No Family Medical History Any Significant Family History?: Yes Hx Cancer: Father *Cancer Comment: Leukemia Hx Heart Disease: Father Hx Resp Disorders: Mother *Resp Comment: COPD Physical Exam - General General Appearance: Alert, Oriented x3, Cooperative, No acute distress - Head Head exam: Atraumatic, Normocephalic, Normal inspection - Eye Eye exam: Normal appearance, PERRL, EOMI - ENT Throat exam: Normal inspection. negative: Tonsillar erythema, Tonsillar exudate - Neck Neck exam: Normal inspection, Full ROM. negative: Tenderness - Respiratory Respiratory exam: Normal lung sounds bilaterally. negative: Accessory muscle use, Respiratory distress, Rhonchi, Stridor, Wheezes - Cardiovascular Cardiovascular Exam: Regular rate, Normal rhythm, Normal heart sounds - GI/Abdominal GI/Abdominal exam: Soft, Normal bowel sounds. negative: Tenderness - Extremities Extremities exam: Normal inspection, Full ROM, Normal capillary refill. negative: Tenderness - Neurological Neurological exam: Alert, Normal gait. negative: Abnormal gait, Motor sensory deficit Course Vital Signs 06/13/17 06/13/17 06/13/17 23:09 23:12 23:14 Temperature 97.4 F L Pulse Rate 77 Pulse Rate [ 79 Pulse Ox Probe] Respiratory 20 20 Rate Blood Pressure 128/73 [Left Arm] Pulse Ox 95 89 L 06/13/17 23:33 Temperature Pulse Rate 76 Pulse Rate [ Pulse Ox Probe] Respiratory 20 Rate Blood Pressure [Left Arm] Pulse Ox 99 - Reevaluation(s) Reevaluation #1: The patient is doing better but is still mildly dyspneic. His RA biox is 88-90% . Due to that fact I did recommend hospital admission and the patient did agree. I then did discuss the case with Mariposa ([employer]) and she does accept the admission for Dr. Palmer. 06/14/17 00:28 Medical Decision Making - Data Complexity MDM Data: Labs Ordered and/or Reviewed, X-Ray Ordered and/or Reviewed, EKG Ordered and/or Reviewed - Lab Data Result diagrams: 06/13/17 23:32 06/13/17 23:32 Lab Results 06/13/17 06/13/17 Range/Units 23:28 23:32 WBC 10.1 (4.2-12.2) K/uL RBC 4.54 (4.40-5.70) M/uL Hgb 12.9 L (14.0-18.0) gm/dl Hct 39.4 L (42.0-52.0) % MCV 86.8 (81-97) fl MCH 28.4 (27-33) pg MCHC 32.7 (32-36) g/dl RDW 14.8 H (11.5-14.5) % Plt Count 317 (130-400) K/uL MPV 9.2 (7.4-10.4) fl Gran % 52.3 (47-80) % Lymphocytes % 33.8 (16-45) % Monocytes % 11.3 H (0-9) % Eosinophils % 2.0 (0-6) % Basophils % 0.6 (0-6) % Troponin T Cancelled - EKG Data -: EKG Interpreted by Mn EKG: No Acute Changes, Unchanged From Previous - Radiology Data Radiology results: Report reviewed (CXR: Increased interstitial markings lower lobes.) Disposition Disposition: Admit Clinical Impression: COPD exacerbation Disposition: Still a Patient at [facility] Decision to Admit: Admit from ER Decision to Admit Date: 06/14/17 Decision to Admit Time: 00:32 Accepting Physician: Estela Way Discussed w/Accepting Physician: 00:32 Condition: (2) Stable Time of Disposition: 00:32 Quality - Quality Measures Quality Measures: N/A - Blood Pressure Screening View Details: Yes Does Patient Have Any of the Following: Active Dx of HTN Blood Pressure Classification: Pre-Hypertensive BP Reading Systolic Measurement: 134 Diastolic Measurement: 88 Screening for High Blood Pressure: Patient Exclusion, Hx of HTN [G9744]
[2017-06-13 23:54] LABS: BLOOD UREA NITROGEN 32 mg/dL (8-23); CREATININE 1.4 mg/dL (0.7-1.2); EST GLOMERULAR FILTRATION RATE 55 mL/min; GLUCOSE,RANDOM 115 mg/dL (74-109)
[2017-06-13 23:59] LABS: NTpro B-NATRIURETIC PEPTIDE 63.73 pg/mL (<125)
[2017-06-14] MEDS ORDERED: DOXYCYCLINE HYCLATE 100 MG CAPSULE PO ONE (00:11)
[2017-06-14] MEDS ORDERED: ACETAMINOPHEN 325 MG TAB PO PRN (02:08)
[2017-06-14] MEDS ORDERED: PROMETHAZINE W/CODEINE 10ML UD PO PRN (02:08)
[2017-06-14] MEDS ORDERED: METOPROLOL TART 25 MG TABLET PO SCH ×2 (02:08→10:00)
[2017-06-14] MEDS ORDERED: TRELEGY ELLIPTA INH ONE (06:00)
[2017-06-14] MEDS: IPRATROPIUM/ALBUTEROL (0.5MG/3MG) NEB INH SCH ×2 (06:02→10:19)
[2017-06-14 06:43] LABS: BASO % 0.1 % (0-6); EOS % 0.2 % (0-6); HEMATOCRIT 43.1 % (42.0-52.0); HEMOGLOBIN 13.9 gm/dl (14.0-18.0); LYMPH % 12.2 % (16-45); MEAN CELL VOLUME 85.7 fl (81-97); MEAN CORPUSCULAR HEMOGLOBIN 27.6 pg (27-33); MEAN CORPUSCULAR HGB CONC 32.3 g/dl (32-36); MONO % 1.7 % (0-9); PLATELET COUNT 360 K/uL (130-400); RED BLOOD COUNT 5.03 M/uL (4.40-5.70); RED CELL DISTRIBUTION WIDTH 14.7 % (11.5-14.5)
[2017-06-14 07:00] LABS: ALB/GLOB RATIO 1.6 (1.1-1.8); ALBUMIN 4.3 g/dL (4.0-5.0); ALKALINE PHOSPHATASE 46 U/L (40-129); ALT/SGPT 22 U/L (<41); AST/SGOT 22 U/L (10.0-50.0); BLOOD UREA NITROGEN 31 mg/dL (8-23); CREATININE 1.2 mg/dL (0.7-1.2); EST GLOMERULAR FILTRATION RATE > 60 mL/min; GLUCOSE,RANDOM 162 mg/dL (74-109)
--- NOTE | 2017-06-14 09:23 | RADIOLOGY REPORT ---
EXAM: CHEST, TWO VIEWS HISTORY: SHORTNESS OF BREATH, COUGH. TECHNIQUE: PA and lateral views of the chest were obtained. Comparison: Two view chest 03/12/17. FINDINGS: Stable heart size, within normal limits. Slightly prominent basilar interstitial markings similar to before. No acute alveolar infiltrate is seen. No pleural effusion or pneumothorax evident. Slight prominence of the superior mediastinum is also unchanged from before may just represent lipomatosus. IMPRESSION: 1. MILD PROMINENCE OF THE INTERSTITIAL MARKINGS IN THE BASES BEFORE. 2. SLIGHT PROMINENCE OF THE SUPERIOR MEDIASTINUM BEFORE 3. NO ACUTE ALVEOLAR INFILTRATE IS SEEN. JOB NUMBER: [id number] MTDD
--- NOTE | 2017-06-14 09:30 | History & Physical ---
History of Present Illness - Date of Service Date of Service for History & Physical: 06/14/17 - History of Present Illness Admitting Diagnosis: 1. COPD Exacerbation with Hypoxia History of Present Illness: 61 yo male admitted for exacerbation. PMH COPD, seasonal allergies, HTN, nicotine addiction and questionable DM with hx of actos use several months ago but not currently. Pt reports increased dyspnea x 1 week with seasonal changes but was cleaning a dust vacuum and trigger his COPD, alb MDI was not effective to control symptoms. Denies any sick contacts. reports last COPD exacerbation 03/16/17 with PNA, admit for 1 night and d/c home. Pt reports continued smoking of 1ppd since age 17. No current desire to quit. Pt presented to ED for SOB. Denied CP, fever, back pain, or sweating. temp 97.4F, HR 11, RR 20, BP 128/73, 89-95% RA WBC 10.1, Hgb 12.9 (chronic low), Hct 39 (chronic low), plt 317 NA 142, K 3.7, CL 100, CO2 23, BUN 32, creatinine 1.4, GFR 55, glucose 115. Trop < 0.1010, BNP 63.73 EKG negative CXR negative for acute process Pt given alb and duo neb, doxy 100mg PO, solumedrol 125mg IVP amd placed on O2. Per pt and ER provider, SOB improved but pt had O2 requirement to maintain above 90%. Admission for COPD exacerbation PCP JEAN Travel Screening - Travel/Exposure Within Last 30 Days Have you traveled within the last 30 days?: No - Travel/Exposure Within Last Year Have you traveled outside the [place] in the last year?: No - Additonal Travel Details Have you been exposed to anyone with a communicable illness?: No - Travel Symptoms Symptom Screening: None Review of Systems Constitutional: Denies: Chills, Fever, Malaise Eyes: Denies: Eye discharge ENT: Denies: Congestion Respiratory: Reports: Cough, Dyspnea. Denies: Hemoptysis, Wheezes Cardiovascular: Denies: Arrhythmia, Chest pain Endocrine: Denies: Fatigue Gastrointestinal: Denies: Abdominal pain Genitourinary: Denies: Dysuria Musculoskeletal: Denies: Back pain Skin: Reports: As per HPI. Denies: Bruising, Change in color, Change in hair/ nails, Lesions, Pruritus, Rash Neurological: Reports: As per HPI. Denies: Abnormal gait, Confusion, Headache, Numbness, Paresthesias, Seizure, Tingling, Tremors, Vertigo, Weakness Psychiatric: Reports: As per HPI. Denies: Anxiety, Auditory hallucinations, Depression, Homicidal thoughts, Suicidal thoughts, Visual hallucinations Hematological/Lymphatic: Reports: As per HPI. Denies: Anemia, Blood Clots, Easy bleeding, Easy bruising, Swollen glands Past Medical History - SOCIAL HISTORY Smoking Status: Heavy tobacco smoker (>10/day) Alcohol Use: None Drug Use: None - RESPIRATORY Hx Respiratory Disorders: Yes Hx COPD: Yes Hx Sleep Apnea: Yes Hx of CPAP: No - CARDIOVASCULAR Hx Cardio Disorders: Yes Hx Heart Attack: Yes (2009) Hx Hypertension: Yes Comment:: high cholesterol - NEURO Hx Neuro Disorders: No - GI Hx GI Disorders: Yes Hx Pancreatitis: Yes (2003) - Hx Genitourinary Disorders: No - ENDOCRINE Hx Endocrine Disorders: No Hx Diabetes: No Hx Thyroid Disease: No - MUSCULOSKELETAL Hx Musculoskeletal Disorders: No - PSYCH Hx Psych Problems: No - HEMATOLOGY/ONCOLOGY Hx Hematology/Oncology Disorders: No Family Medical History Any Significant Family History?: Yes Hx Cancer: Father *Cancer Comment: Leukemia Hx Heart Disease: Father Hx Resp Disorders: Mother *Resp Comment: COPD H&P Meds/Allergies - Allergies Allergies: Allergies Allergy/AdvReac Type Severity Reaction Status Date / Time No Known Drug Allergies Allergy Verified 07/04/15 20:47 - Home Medications Previous Rx's Medication Instructions Recorded Albuterol Sulfate [Proair Hfa] 1 - 2 inh IH Q4HR PRN #1 inhaler 06/19/15 Aspirin Enteric-Coated [Ecotrin 81 mg PO DAILY tabec 06/19/15 (EC)] Spironolactone [Aldactone] 25 mg PO DAILY tablet 06/19/15 Promethazine HCl/Codeine 10 ml PO Q4H PRN #180 ml 03/14/17 [Phenergan W/Codeine] - Active Medications Active Medications: Current Medications Acetaminophen (Tylenol 325mg) 650 mg PO Q4H PRN PRN Reason: PAIN/TEMP Albuterol/Ipratropium (Duoneb) 3 ml INH RESP.Q4H.[facility] Last Admin: 06/14/17 06:02 Dose: 3 ml Amlodipine Besylate (Norvasc) 5 mg PO DAILY [facility] Last Admin: 06/14/17 09:13 Dose: 5 mg Aspirin (Ecotrin (Ec)) 81 mg PO DAILY [facility] Last Admin: 06/14/17 09:13 Dose: 81 mg Atorvastatin Calcium (Lipitor) 80 mg PO DAILY [facility] Last Admin: 06/14/17 09:14 Dose: 80 mg Benazepril HCl (Lotensin) 40 mg PO DAILY [facility] Last Admin: 06/14/17 09:14 Dose: 40 mg Bupropion HCl (Wellbutrin Sr) 150 mg PO BID [facility] Last Admin: 06/14/17 09:13 Dose: 150 mg Clopidogrel Bisulfate (Plavix) 75 mg PO DAILY [facility] Last Admin: 06/14/17 09:14 Dose: 75 mg Doxycycline Hyclate (Vibramycin) 100 mg PO BID [facility] Last Admin: 06/14/17 09:13 Dose: 100 mg Hydrochlorothiazide (Hctz 25mg) 25 mg PO DAILY [facility] Last Admin: 06/14/17 09:13 Dose: 25 mg Methylprednisolone Sodium Succinate (Solu-Medrol) 60 mg IVP DAILY [facility] Last Admin: 06/14/17 09:15 Dose: 60 mg Metoprolol Tartrate (Lopressor) 25 mg PO BID [facility] Last Admin: 06/14/17 09:13 Dose: 25 mg Patient Own Med: Fenofibrate {Lofibra } 160 Mg 1 each PO DAILY [facility] Last Admin: 06/14/17 09:27 Dose: 1 each Pioglitazone HCl (Actos) 30 mg PO DAILY [facility] Last Admin: 06/14/17 09:14 Dose: 30 mg Promethazine HCl/Codeine (Phenergan W/Codeine) 10 ml PO Q4H PRN PRN Reason: COUGH Spironolactone (Aldactone) 25 mg PO DAILY [facility] Last Admin: 06/14/17 09:14 Dose: 25 mg Physical Exam - Vital Signs Vital Signs: Vital Signs - Last 24 Hrs Temp Pulse Pulse Pulse Resp BP BP 06/14/17 08:12 80 18 06/14/17 06:05 81 18 06/14/17 02:08 97.6 F 84 20 127/65 06/14/17 01:46 84 20 134/88 06/13/17 23:33 76 20 06/13/17 23:14 77 20 06/13/17 23:12 79 20 128/73 06/13/17 23:09 97.4 F L Pulse Ox 06/14/17 08:12 06/14/17 06:05 94 L 06/14/17 02:08 94 L 06/14/17 01:46 92 L 06/13/17 23:33 99 06/13/17 23:14 89 L 06/13/17 23:12 95 06/13/17 23:09 - General General Appearance: Alert, Oriented x3, Cooperative, No acute distress Limitations: No limitations - Head Head exam: Atraumatic, Normocephalic, Normal inspection - Eye Eye exam: Normal appearance, PERRL, EOMI - ENT ENT exam: Normal exam Mouth exam: Normal external inspection Throat exam: Normal inspection. negative: Tonsillar erythema, Tonsillar exudate - Neck Neck exam: Normal inspection, Full ROM. negative: Tenderness - Respiratory Respiratory exam: Normal lung sounds bilaterally. negative: Accessory muscle use, Respiratory distress, Rhonchi, Stridor, Wheezes - Cardiovascular Cardiovascular Exam: Regular rate, Normal rhythm, Normal heart sounds Peripheral Pulses: 2+: Radial (R), Radial (L), Dorsalis Pedis (R), Dorsalis Pedis (L) - GI/Abdominal GI/Abdominal exam: Soft, Normal bowel sounds. negative: Tenderness - Rectal Rectal exam: Deferred - exam: Deferred - Extremities Extremities exam: Normal inspection, Full ROM, Normal capillary refill. negative: Tenderness - Back Back exam: Reports: Normal inspection - Neurological Neurological exam: Alert, Normal gait. negative: Abnormal gait, Motor sensory deficit - Psychiatric Psychiatric exam: Normal affect - Skin Skin exam: Dry, Normal color Results - Labs Result Diagrams: 06/14/17 06:33 06/14/17 06:33 Labs Last 24 Hours: Laboratory Results - last 24 hr 06/13/17 06/13/17 06/13/17 23:28 23:32 23:32 WBC 10.1 RBC 4.54 Hgb 12.9 L Hct 39.4 L MCV 86.8 MCH 28.4 MCHC 32.7 RDW 14.8 H Plt Count 317 MPV 9.2 Gran % 52.3 Neutrophils % Lymphocytes % 33.8 Monocytes % 11.3 H Eosinophils % 2.0 Basophils % 0.6 Lymphocytes Monocytes Eosinophil Count Sodium 142 Potassium 3.7 Chloride 100 Carbon Dioxide 23.0 Anion Gap 19.0 H BUN 32 H Creatinine 1.4 H Estimated GFR 55 Random Glucose 115 H Calcium 9.1 Total Bilirubin AST ALT Alkaline Phosphatase Troponin T Cancelled < 0.010 NT-Pro-B Natriuret Pep 63.73 Total Protein Albumin Globulin Albumin/Globulin Ratio 06/14/17 06/14/17 06:33 06:33 WBC 9.0 RBC 5.03 Hgb 13.9 L Hct 43.1 MCV 85.7 MCH 27.6 MCHC 32.3 RDW 14.7 H Plt Count 360 MPV 9.0 Gran % Neutrophils % 81.0 H Lymphocytes % 12.2 L Monocytes % 1.7 Eosinophils % 0.2 Basophils % 0.1 Lymphocytes 13.0 L Monocytes 5.0 Eosinophil Count 1.0 Sodium 139 Potassium 4.0 Chloride 100 Carbon Dioxide 23.0 Anion Gap 16.0 BUN 31 H Creatinine 1.2 Estimated GFR > 60 Random Glucose 162 H Calcium 9.2 Total Bilirubin 0.20 AST 22 ALT 22 Alkaline Phosphatase 46 Troponin T NT-Pro-B Natriuret Pep Total Protein 7.0 Albumin 4.3 Globulin 2.7 Albumin/Globulin Ratio 1.6 - Imaging and Cardiology Chest x-ray Status: Report reviewed VTE H&P Assessment - Risk for VTE Risk for VTE: No Risk Level: Very Low Risk Assessment Date: 06/14/17 Risk Assessment Time: 10:59 VTE Orders Placed or Will Be Placed: No VTE Reason for No Prophylaxis: Not Indicated Plan - Detailed Diagnosis and Plan (1) COPD exacerbation Current Visit: Yes Status: Acute Base Code: J44.1 - CHRONIC OBSTRUCTIVE PULMONARY DISEASE W (ACUTE) EXACERBATION Comment: 06/14/17 -admission through ED for dyspnea/SOB after being exposed to dust and allergen triggers -unable to control symptoms at home -started on solumedrol 125IVP, docy 100mg BID PO, and neb tx PRN -On O2 via ER but POC to wean off O2 and pt wants d/c today -denies productive cough, sick contacts, or current symptoms (2) Full code status Current Visit: No Status: Acute Base Code: Z78.9 - OTHER SPECIFIED HEALTH STATUS Comment: 06/14/17: Pt. is full code status
[2017-06-14] MEDS ORDERED: FENOFIBRATE PO SCH (10:00)
[2017-06-14] MEDS ORDERED: DOXYCYCLINE HYCLATE 100 MG CAPSULE PO SCH (10:00)
[2017-06-14] MEDS ORDERED: ATORVASTATIN 20 MG TABLET PO SCH (10:00)
[2017-06-14] MEDS ORDERED: AMLODIPINE BESYLATE 5MG TAB PO SCH (10:00)
[2017-06-14] MEDS ORDERED: ASPIRIN 81 MG TABEC PO SCH (10:00)
[2017-06-14] MEDS ORDERED: SPIRONOLACTONE 25 MG TAB PO SCH (10:00)
[2017-06-14] MEDS ORDERED: HYDROCHLOROTHIAZIDE 25 MG TABLET PO SCH (10:00)
[2017-06-14] MEDS ORDERED: CLOPIDOGREL 75MG TABLET PO SCH (10:00)
[2017-06-14] MEDS ORDERED: METHYLPREDNISOLONE PF 125MG/VIAL IVP SCH (10:00)
[2017-06-14] MEDS ORDERED: BENAZEPRIL 20 MG TABLET PO SCH (10:00)
[2017-06-14] MEDS ORDERED: [UNRECOGNIZED DRUG - OTHER] PO SCH (10:00)
[2017-06-14] MEDS ORDERED: PIOGLITAZONE HCL 15 MG TABLET PO SCH (10:00)
[2017-06-14] MEDS ORDERED: BUPROPION HCL 150 MG TAB.SR.12H PO SCH (10:00)
--- NOTE | 2017-06-14 12:36 | Discharge Summary ---
Providers Discharge Summary Date: 06/14/17 Date of admission: 06/14/17 02:05 Expected Date of Discharge: 06/14/17 Attending physician: SILVINA ZELAYA Primary care physician: SERENE PENA M.D. Physical Exam - Vital Signs Vital Signs: Vital Signs - Last 24 Hrs Temp Pulse Pulse Pulse Resp BP BP 06/14/17 10:15 97 H 14 06/14/17 09:28 97.5 F L 93 H 18 131/64 06/14/17 08:12 80 18 06/14/17 06:05 81 18 06/14/17 02:08 97.6 F 84 20 127/65 06/14/17 01:46 84 20 134/88 06/13/17 23:33 76 20 06/13/17 23:14 77 20 06/13/17 23:12 79 20 128/73 06/13/17 23:09 97.4 F L Pulse Ox 06/14/17 10:15 95 06/14/17 09:28 94 L 06/14/17 08:12 06/14/17 06:05 94 L 06/14/17 02:08 94 L 06/14/17 01:46 92 L 06/13/17 23:33 99 06/13/17 23:14 89 L 06/13/17 23:12 95 06/13/17 23:09 - General General Appearance: Alert, Oriented x3, Cooperative, No acute distress Limitations: No limitations - Head Head exam: Atraumatic, Normocephalic, Normal inspection - Eye Eye exam: Normal appearance, PERRL, EOMI - ENT ENT exam: Normal exam Mouth exam: Normal external inspection Throat exam: Normal inspection. negative: Tonsillar erythema, Tonsillar exudate - Neck Neck exam: Normal inspection, Full ROM. negative: Tenderness - Respiratory Respiratory exam: Normal lung sounds bilaterally. negative: Accessory muscle use, Respiratory distress, Rhonchi, Stridor, Wheezes - Cardiovascular Cardiovascular Exam: Regular rate, Normal rhythm, Normal heart sounds Peripheral Pulses: 2+: Radial (R), Radial (L), Dorsalis Pedis (R), Dorsalis Pedis (L) - GI/Abdominal GI/Abdominal exam: Soft, Normal bowel sounds. negative: Tenderness - Rectal Rectal exam: Deferred - exam: Deferred - Extremities Extremities exam: Normal inspection, Full ROM, Normal capillary refill. negative: Tenderness - Back Back exam: Reports: Normal inspection - Neurological Neurological exam: Alert, Normal gait. negative: Abnormal gait, Motor sensory deficit - Psychiatric Psychiatric exam: Normal affect - Skin Skin exam: Dry, Normal color Hospitalization - Hospitalization Admission Diagnosis: 1. COPD Exacerbation with Hypoxia - Problem List/Discharge Diagnosis (1) COPD exacerbation Current Visit: Yes Status: Resolved Base Code: J44.1 - CHRONIC OBSTRUCTIVE PULMONARY DISEASE W (ACUTE) EXACERBATION Comment: 06/14/17 -admission through ED for dyspnea/SOB after being exposed to dust and allergen triggers -unable to control symptoms at home -started on solumedrol 125IVP, docy 100mg BID PO, and neb tx PRN -On O2 via ER but POC to wean off O2 and pt wants d/c today -denies productive cough, sick contacts, or current symptoms (2) Full code status Current Visit: No Status: Acute Base Code: Z78.9 - OTHER SPECIFIED HEALTH STATUS Comment: 06/14/17: Pt. is full code status - Hospitalization Course Disposition: Home, Self-Care Hospital Course: 61 yo male admitted for exacerbation. PMH COPD, seasonal allergies, HTN, nicotine addiction and questionable DM with hx of actos use several months ago but not currently. Pt reports increased dyspnea x 1 week with seasonal changes but was cleaning a dust vacuum and trigger his COPD, alb MDI was not effective to control symptoms. Denies any sick contacts. reports last COPD exacerbation 03/16/17 with PNA, admit for 1 night and d/c home. Pt reports continued smoking of 1ppd since age 17. No current desire to quit. Pt presented to ED for SOB. Denied CP, fever, back pain, or sweating. temp 97.4F, HR 11, RR 20, BP 128/73, 89-95% RA WBC 10.1, Hgb 12.9 (chronic low), Hct 39 (chronic low), plt 317 NA 142, K 3.7, CL 100, CO2 23, BUN 32, creatinine 1.4, GFR 55, glucose 115. Trop < 0.1010, BNP 63.73 EKG negative CXR negative for acute process Pt given alb and duo neb, doxy 100mg PO, solumedrol 125mg IVP amd placed on O2. Per pt and ER provider, SOB improved but pt had O2 requirement to maintain above 90%. Admission for COPD exacerbation JOSE PENA Procedures: Imaging and X-Rays 06/13/17 23:27 CHEST 2 VIEWS [RAD] Stat Cardiology Procedures 06/13/17 23:17 EKG NOW 06/13/17 23:27 Iv Therapy Nurse NOW 06/14/17 02:08 Iv Therapy Nurse .Continuous Abnormal Labs: Abnormal Lab Results 06/13/17 06/13/17 06/14/17 Range/Units 23:32 23:32 06:33 Hgb 12.9 L 13.9 L (14.0-18.0) gm/dl Hct 39.4 L (42.0-52.0) % RDW 14.8 H 14.7 H (11.5-14.5) % Neutrophils % 81.0 H (47-80) % Lymphocytes % 12.2 L (16-45) % Monocytes % 11.3 H (0-9) % Lymphocytes 13.0 L (16-45) % Anion Gap 19.0 H (7-16) BUN 32 H (8-23) mg/dL Creatinine 1.4 H (0.7-1.2) mg/dL Random Glucose 115 H (74-109) mg/dL 06/14/17 Range/Units 06:33 Hgb (14.0-18.0) gm/dl Hct (42.0-52.0) % RDW (11.5-14.5) % Neutrophils % (47-80) % Lymphocytes % (16-45) % Monocytes % (0-9) % Lymphocytes (16-45) % Anion Gap (7-16) BUN 31 H (8-23) mg/dL Creatinine (0.7-1.2) mg/dL Random Glucose 162 H (74-109) mg/dL Condition at Discharge: (2) Stable Discharge Diagnosis: COPD exacerbation VTE Discharge VTE Reason For No Overlap Therapy: Not Indicated Discharge Medications - Discharge Medications Prescriptions: Doxycycline Hyclate 100 mg PO BID 4 Days #8 tab.dr Prednisone 10 mg PO ASDIR 6 Days #21 tab.ds.pk Home Medications: Ambulatory Orders Atorvastatin Calcium [Lipitor] 80 mg PO DAILY 06/18/15 [Last Taken 03/12/17] Bupropion HCl [Wellbutrin Sr] 150 mg PO BID 06/18/15 [Last Taken 03/12/17] Clopidogrel Bisulfate [Plavix] 75 mg PO DAILY 06/18/15 [Last Taken 03/12/17] Fenofibrate [Lofibra] 160 mg PO DAILY 06/18/15 [Last Taken 03/12/17] Fluticasone/Vilanterol [Breo Ellipta 100-25 Mcg INH] 1 inh IH DAILY 06/18/15 [ Last Taken 03/12/17] Hydrochlorothiazide [Hctz] 25 mg PO DAILY 06/18/15 [Last Taken 03/12/17] Metoprolol Tartrate [Lopressor] 25 mg PO Q12H 06/18/15 [Last Taken 03/12/17] Niacin [Niaspan] 1,500 mg PO QPM 06/18/15 [Last Taken 03/12/17] Umeclidinium [place] [Incruse Ellipta] 1 inh IH DAILY 06/18/15 [Last Taken 03/12] Albuterol Sulfate [Proair Hfa] 1 - 2 inh IH Q4HR PRN #1 inhaler 06/19/15 [Last Taken 03/12/17] Aspirin Enteric-Coated [Ecotrin (EC)] 81 mg PO DAILY tabec 06/19/15 [Last Taken 03/12/17] Spironolactone [Aldactone] 25 mg PO DAILY tablet 06/19/15 [Last Taken 03/12/17] Amlodipine Besylate/Benazepril [Lotrel 5-40 mg Capsule] 1 each PO DAILY [Last Taken Unknown] Pioglitazone HCl 30 mg PO DAILY 03/13/17 [Last Taken Unknown] Promethazine HCl/Codeine [Phenergan W/Codeine] 10 ml PO Q4H PRN #180 ml [Last Taken Unknown] Acetaminophen [Tylenol 325Mg] 650 mg PO Q4H PRN tablet 06/14/17 [Last Taken Unknown] Benazepril HCl [Lotensin] 40 mg PO DAILY tablet 06/14/17 [Last Taken Unknown] Doxycycline Hyclate 100 mg PO BID 4 Days #8 tab.dr 06/14/17 [Last Taken Unknown] Doxycycline Hyclate [Vibramycin] 100 mg PO BID capsule 06/14/17 [Last Taken Unknown] Prednisone 10 mg PO ASDIR 6 Days #21 tab.ds.pk 06/14/17 [Last Taken Unknown] Discharge Plan - Discharge Instructions Activity at Discharge: Increase Activity as Tolerated Diet at Discharge: Regular Diet Instructions: Dyspnea (ED) Additional Instructions: Take Doxy twice a day for 4 more days, take the prednisone dose pack as directed Follow up with PCP in 1 week Try to decrease smoking amount Avoid allergy/COPD triggers, wear a mask when exposed Quality Measures - Quality Measures Quality Measures: Documentation of Current Medications in Medical Record, Screening for High Blood Pressure and F/U Documented - Current Medications Quality Measure: Measure #130: Documentation of Current Medications Documentation of Current Medications: <Current Medications Documented/Reviewed> [G8427] - Blood Pressure Screening Quality Measure: Screening for High Blood Pressure and Follow-Up Documented Does Patient Have Any of the Following: Active Dx of HTN Blood Pressure Classification: Pre-Hypertensive BP Reading Systolic Measurement: 134 Diastolic Measurement: 88 Screening for High Blood Pressure: Patient Exclusion, Hx of HTN [G9744] - Elder Abuse Suspicion Index EASI Reference Information: Mitali PRYOR, Robert C, Francisca D, Sadie Almanza.Development and validation of a tool to assist physicians identification of elder abuse: The Elder Abuse Suspicion Index (EASI ). Journal of Elder Abuse and Neglect, 2008; 20 (3): 276-300.
== END 2017-06-14 13:11 | disposition home or self-care (01) ==
LOC: ER 23:07 → MEDSURG 06-14 02:05
PROVIDERS: ADMIT Internal Medicine; ATTEND Internal Medicine
DX: J44.1 Chronic obstructive pulmonary disease with (acute) exacerbation (principal); I10 Essential (primary) hypertension; R09.02 Hypoxemia; G47.30 Sleep apnea, unspecified; I25.2 Old myocardial infarction; E78.00 Pure hypercholesterolemia, unspecified; F17.210 Nicotine dependence, cigarettes, uncomplicated
CPT/HCPCS: 71046; 80048; 80053; 83880; 84484; 85025; 85027; 93005; 93010; 94640; 94761; 96374; 99220; 99285; J2930; J3490; J7613

== ENCOUNTER 2018-05-09 00:10 | Emergency (ER) | payer BC ==
[2018-05-09] MEDS ORDERED: ASPIRIN 81 MG CHEWABLE TABLET PO ONE (00:16)
[2018-05-09] MEDS ORDERED: IPRATROPIUM/ALBUTEROL (0.5MG/3MG) NEB INH ONE (00:16)
--- NOTE | 2018-05-09 00:22 | Emergency Department Record ---
History of Present Illness - General Chief Complaint: Shortness of breath Stated Complaint: TENISHA Time Seen by Provider: 05/09/18 00:15 Source: Patient Mode of Arrival: Ambulatory Limitations: No limitations - History of Present Illness Initial Comments: 62 yo male presents to ED for evaluation of difficulty in breathing symptoms that began several hours ago. Patient reports a history of COPD, denies chest discomfort, fevers, productive cough symptoms, or recent illness. Patient denies lower extremity edema, swelling, calf pain, or history of DVT/PE. Patient does report using his inhaler prior to arrival. MD Complaint: Shortness of breath Onset/Timin -: Days(s) Severity: Moderate Consistency: Constant Improves With: Nothing Worsens With: Nothing Known History Of: COPD Associated Symptoms: Denies other symptoms Treatments Prior to Arrival: Bronchodilator - Related Data Home Oxygen Therapy: No Previous Rx's Medication Instructions Recorded Albuterol Sulfate [Proair Hfa] 1 - 2 inh IH Q4HR PRN #1 inhaler 06/19/15 Aspirin Enteric-Coated [Ecotrin 81 mg PO DAILY tabec 06/19/15 (EC)] Spironolactone [Aldactone] 25 mg PO DAILY tablet 06/19/15 Benazepril HCl [Lotensin] 40 mg PO DAILY tablet 06/14/17 Allergies Allergy/AdvReac Type Severity Reaction Status Date / Time No Known Drug Allergies Allergy Verified 07/04/15 20:47 Review of Systems Constitutional: Denies: Chills, Fever, Malaise, Night sweats Eyes: Denies: Eye discharge, Eye pain ENT: Denies: Congestion, Ear pain, Epistaxis Respiratory: Reports: Dyspnea. Denies: Cough Cardiovascular: Denies: Chest pain, Dyspnea on exertion, Edema Endocrine: Denies: Fatigue, Heat or cold intolerance Gastrointestinal: Denies: Abdominal pain, Nausea, Vomiting Genitourinary: Denies: Incontinence, Retention Musculoskeletal: Denies: Arthralgia, Back pain Skin: Denies: Bruising, Change in color Neurological: Denies: Abnormal gait, Confusion, Headache, Seizure Psychiatric: Denies: Anxiety Hematological/Lymphatic: Denies: Anemia, Blood Clots Past Medical History - SOCIAL HISTORY Smoking Status: Heavy tobacco smoker (>10/day) Drug Use: None - RESPIRATORY Hx Respiratory Disorders: Yes Hx COPD: Yes Hx Sleep Apnea: Yes Hx of CPAP: No - CARDIOVASCULAR Hx Cardio Disorders: Yes Hx Heart Attack: Yes (2009) Hx Hypertension: Yes Comment:: high cholesterol - NEURO Hx Neuro Disorders: No - GI Hx GI Disorders: Yes Hx Pancreatitis: Yes (2003) - Hx Genitourinary Disorders: No - ENDOCRINE Hx Endocrine Disorders: No Hx Diabetes: No Hx Thyroid Disease: No - MUSCULOSKELETAL Hx Musculoskeletal Disorders: No - PSYCH Hx Psych Problems: No - HEMATOLOGY/ONCOLOGY Hx Hematology/Oncology Disorders: No Family Medical History Hx Cancer: Father *Cancer Comment: Leukemia Hx Heart Disease: Father Hx Resp Disorders: Mother *Resp Comment: COPD Physical Exam - General General Appearance: Alert, Oriented x3, Cooperative, Moderate distress Limitations: No limitations - Head Head exam: Atraumatic, Normocephalic, Normal inspection Head exam detail: negative: Abrasion, Contusion, Reyes's sign, General tenderness, Hematoma, Laceration - Eye Eye exam: Normal appearance. negative: Conjunctival injection, Periorbital swelling, Periorbital tenderness, Scleral icterus - ENT Ear exam: negative: Auricular hematoma, Auricular trauma Nasal Exam: negative: Active bleeding, Discharge, Dried blood, Foreign body Mouth exam: negative: Drooling, Laceration, Muffled voice, Tongue elevation - Neck Neck exam: Normal inspection. negative: Meningismus, Tenderness - Respiratory Respiratory exam: Normal lung sounds bilaterally. negative: Rales, Respiratory distress, Rhonchi, Stridor - Cardiovascular Cardiovascular Exam: Regular rate, Normal rhythm, Normal heart sounds - GI/Abdominal GI/Abdominal exam: Soft. negative: Rebound, Rigid, Tenderness - Rectal Rectal exam: Deferred - exam: Deferred - Extremities Extremities exam: Normal inspection. negative: Pedal edema, Tenderness - Back Back exam: Denies: CVA tenderness (R), CVA tenderness (L) - Neurological Neurological exam: Alert, Normal gait, Oriented X3 - Psychiatric Psychiatric exam: Normal affect, Normal mood - Skin Skin exam: Normal color. negative: Abrasion Type of lesion: negative: abrasion Course Vital Signs 05/09/18 00:14 Pulse Rate [ 75 Pulse Ox Probe] Respiratory 32 H Rate Blood Pressure 137/86 [Left Arm] Pulse Ox 95 - Reevaluation(s) Reevaluation #1: 05/09/18 00:20 EKGs: NSR with premature atrial contractions Q waves III, AVF No acute ST-T wave changes Unchanged from 06/13/17 Reevaluation #2: 05/09/18 00:33 Bedside US performed, no evidence for significant pericardial effusion is present on examination. Reevaluation #3: 05/09/18 00:50 Laboratory studies were reviewed and are grossly unremarkable for an acute process other than elevated alcohol of 0.186. Will initiate transfer for further cardiac evaluation and probable COPD exacerbation Reevaluation #4: 05/09/18 01:16 Case was discussed with Dr. Zambrano, will accept transfer for cardiac evaluation. Medical Decision Making - Lab Data Result diagrams: 05/09/18 00:20 05/09/18 00:20 Disposition Disposition: Transfer Clinical Impression: COPD exacerbation Chest pain Qualifiers: Chest pain type: unspecified Qualified Code(s): R07.9 - Chest pain, unspecified Alcohol intoxication Qualifiers: Complication of substance-induced condition: uncomplicated Qualified Code(s): F10.920 - Alcohol use, unspecified with intoxication, uncomplicated Disposition: Acute Care Hospital Transfer Transfer To: [facility] Reason For Transfer: Cardiac evaluation Accepting Physician: Kenya Time Discussed w/Accepting Physician: 01:17 Condition: (2) Stable Forms: Patient Portal Access Time of Disposition: 01:17 Quality - Quality Measures Quality Measures: N/A - Blood Pressure Screening Does Patient Have Any of the Following: No Blood Pressure Classification: Pre-Hypertensive BP Reading Systolic Measurement: 137 Diastolic Measurement: 86 Screening for High Blood Pressure: < Pre-Hypertensive BP, F/U Documented > [ G8950] Pre-Hypertensive Follow-up Interventions: Referral to alternative/primary care provider.
[2018-05-09 00:26] LABS: BASO % 0.5 % (0-6); EOS % 2.6 % (0-6); GRAN % 60.6 % (47-80); HEMATOCRIT 42.6 % (42.0-52.0); HEMOGLOBIN 13.9 gm/dl (14.0-18.0); LYMPH % 26.4 % (16-45); MEAN CELL VOLUME 85.9 fl (81-97); MEAN CORPUSCULAR HGB CONC 32.6 g/dl (32-36); MEAN PLATELET VOLUME 9.3 fl (7.4-10.4); MONO % 9.9 % (0-9); PLATELET COUNT 352 K/uL (130-400); RED BLOOD COUNT 4.96 M/uL (4.40-5.70); RED CELL DISTRIBUTION WIDTH 14.9 % (11.5-14.5)
[2018-05-09 00:38] LABS: BLOOD UREA NITROGEN 22 mg/dL (8-23); CREATININE 1.1 mg/dL (0.7-1.2); EST GLOMERULAR FILTRATION RATE > 60 mL/min
[2018-05-09 00:39] LABS: TOTAL PROTEIN 6.8 g/dL (6.6-8.7)
[2018-05-09 00:41] LABS: GLUCOSE,RANDOM 136 mg/dL (74-109)
[2018-05-09 00:42] LABS: ALCOHOL 0.186 g/dL (0-0.010)
[2018-05-09 00:44] LABS: ALB/GLOB RATIO 1.7 (1.1-1.8); ALBUMIN 4.3 g/dL (4.0-5.0); ALKALINE PHOSPHATASE 43 U/L (40-129); ALT/SGPT 22 U/L (<41); AST/SGOT 22 U/L (10.0-50.0)
[2018-05-09] MEDS ORDERED: NITROGLYCERIN 0.4MG SL TABLET #25 BTL SL PRN (00:46)
[2018-05-09] MEDS ORDERED: METHYLPREDNISOLONE PF 125MG/VIAL IVP ONE (00:46)
[2018-05-09] MEDS ORDERED: MORPHINE SULFATE 10 MG/ML VIAL IVP ONE (01:52)
[2018-05-09] MEDS ORDERED: ONDANSETRON HCL IV 4 MG/2 ML VIAL IVP ONE (01:52)
--- NOTE | 2018-05-10 19:08 | RADIOLOGY REPORT ---
EXAM: CHEST 1 VIEW HISTORY: CHEST PAIN. SHORTNESS OF BREATH. TECHNIQUE: Frontal view of the chest. COMPARISON: Chest radiograph 06/13/2017. FINDINGS: The cardiomediastinal silhouette accentuated by low inspiratory lung volumes. No focal consolidation. No pleural effusion or pneumothorax. IMPRESSION: NO ACUTE LUNG FINDINGS. JOB NUMBER: [id number] MTDD
--- NOTE | 2018-05-10 19:14 | CT ANGIOGRAM REPORT ---
EXAM: CT ANGIOGRAM CHEST CTA w contrast HISTORY: SHORTNESS OF BREATH, DIFFICULTY BREATHING, LEFT-SIDED CHEST PAIN. TECHNIQUE: CTA chest performed with 89 mL Omnipaque-350 intravenous contrast. Additional maximum-intensity projection images created on an independent workstation. COMPARISON: Chest radiograph 05/09/2018. FINDINGS: No pulmonary artery filling defects to suggest embolism. Suboptimal evaluation of the subsegmental branches, particularly in the lower lobes, related to contrast opacification. Mild thoracic aortic calcification without aneurysm or dissection. No significant pericardial fluid collection. No mediastinal, hilar, or axillary lymphadenopathy. Biapical subpleural blebs. Mild dependent lower lobe atelectasis bilaterally. No focal consolidation. No pleural effusion or pneumothorax. Visualized upper abdominal structures appear unremarkable. No acute osseous findings. IMPRESSION: 1. NO EVIDENCE OF PULMONARY EMBOLISM. LIMITED ASSESSMENT OF THE PERIPHERAL ARTERIAL BRANCHES DUE TO SUBOPTIMAL CONTRAST OPACIFICATION. 2. NO ACUTE INTRATHORACIC FINDINGS. JOB NUMBER: [id number] MTDD
== END 2018-05-09 02:30 | disposition short-term general hospital (02) ==
LOC: ER 00:10
DX: J44.1 Chronic obstructive pulmonary disease with (acute) exacerbation (principal); R07.9 Chest pain, unspecified; F10.920 Alcohol use, unspecified with intoxication, uncomplicated; Y90.6 Blood alcohol level of 120-199 mg/100 ml; R06.02 Shortness of breath; I10 Essential (primary) hypertension; I25.2 Old myocardial infarction; F17.210 Nicotine dependence, cigarettes, uncomplicated
CPT/HCPCS: 99285 ×2; 96374; 96375; 85025; 80053; 84484; 71045; 71275; 94640; 93005; 93010; G0480; Q9967; J2405; J2270; 80320; J2930